=== PATIENT | female | born 1955 | race Native Hawaiian/Other Pacific Islander ===

== ENCOUNTER 2020-05-11 19:57 | Emergency (ER) | payer OTHER ==
[~2020-05-11] VITALS: Ht 160 cm; Wt 52.2 kg
[2020-05-11 20:51] LABS: PLATELET COUNT 275 K/uL (152-353)
[2020-05-11 21:06] LABS: POTASSIUM 4.3 mmol/L (3.6-5.2)
[2020-05-11 21:37] VITALS: BP 105/60; TEMP 97.8
[2020-05-11] MEDS ORDERED: ASCO500T18 PO (23:02)
[2020-05-11] MEDS ORDERED: CLON0.5T36 PO (23:03)
[2020-05-11] MEDS ORDERED: LIPITOR20 MG PO (23:05)
[2020-05-11] MEDS ORDERED: BENZ1TAB43 PO (23:07)
[2020-05-11] MEDS ORDERED: TRAZ50TA36 PO (23:08)
[2020-05-11] MEDS ORDERED: CVS NICOTI21 MG/24 H TD (23:09)
[2020-05-11] MEDS ORDERED: CITALOPRAM20 M1 PO (23:12)
[2020-05-11] MEDS ORDERED: LEVO0.0218 PO (23:13)
[2020-05-11] MEDS ORDERED: COZAAR25 MG PO (23:14)
[2020-05-11] MEDS ORDERED: BUSP5TAB2 PO (23:16)
[2020-05-11] MEDS ORDERED: CELEBREX100 MG PO (23:17)
[2020-05-11] MEDS ORDERED: ANTI-DIARRHE2 MG PO (23:19)
[2020-05-11] MEDS ORDERED: [UNRECOGNIZED DRUG - REMARK] PO (23:19)
[2020-05-11] MEDS ORDERED: HYDROXYZINE HYD25 MG PO (23:20)
[2020-05-11] MEDS ORDERED: [UNRECOGNIZED DRUG - OTHER] PO (23:23)
[2020-05-11] MEDS ORDERED: SV MELATONIN5 MG PO (23:26)
[2020-05-11] MEDS ORDERED: ASCORBIC ACD500 MG PO (23:26)
[2020-05-11] MEDS ORDERED: DONE5TAB PO (23:27)
[2020-05-11] MEDS ORDERED: ASPI325T40 PO (23:28)
[2020-05-11] MEDS ORDERED: PREPARATIO1 RE (23:30)
[2020-05-11] MEDS ORDERED: HYDROXYZINE 50 MG/ML IM (23:34)
[2020-05-11] MEDS ORDERED: QUETIAPINE25 MG PO (23:35)
[2020-05-11] MEDS ORDERED: DIVA125C PO (23:36)
[2020-05-11] MEDS ORDERED: FLOVENT DI50 MCG/BLI INH (23:43)
[2020-05-11] MEDS ORDERED: MULTI VITAMIN1 TAB PO (23:53)
[2020-05-31] MEDS ORDERED: OLANZAPINE5 MG PO (09:15)
[2020-05-31] MEDS ORDERED: ESCI10TA PO (09:15)
[2020-05-31] MEDS ORDERED: DIVA250T2 PO (09:16)
[2020-05-31] MEDS ORDERED: BUSP15TAB2 PO (09:16)
[2020-05-31] MEDS ORDERED: CVS NICOTI14 MG/241 TD (09:21)
== END 2020-05-11 21:37 | disposition other institution (70) ==
LOC: ED 19:57
PROVIDERS: Family Medicine
DX: F22 Delusional disorders (principal); F01.51 Vascular dementia, unspecified severity, with behavioral disturbance; F60.3 Borderline personality disorder; Z11.59 Encounter for screening for other viral diseases; Z04.6 Encounter for general psychiatric examination, requested by authority
CPT/HCPCS: 36415; 80053; 81000; 85027; 87086; 87088; 87635; 93005; 99283; U0003